=== PATIENT | female | born 1990 | race Caucasian/White ===

== ENCOUNTER 2019-06-03 12:31 | Emergency (ER) | payer MEDICAID ==
[~2019-06-03] VITALS: Ht 152.4 cm; Wt 68.0 kg
[2019-06-03 12:40] VITALS: BP 108/72
[2019-06-03] MEDS ORDERED: DEXAMETHASONE 4MG TABLET PO ONE (14:30)
== END 2019-06-03 15:43 | disposition home or self-care (01) ==
LOC: ER 12:31
DX: T78.40XA Allergy, unspecified, initial encounter (principal); T50.Z95A Adverse effect of other vaccines and biological substances, initial encounter; Y92.9 Unspecified place or not applicable
CPT/HCPCS: 99282; J8540